=== PATIENT | female | born 1960 | race Caucasian/White ===

== ENCOUNTER 2021-02-25 14:40 | Outpatient (CLI) | payer OTHER ==
--- NOTE | 2021-03-05 13:24 | Mammography Report ---
BILATERAL DIGITAL SCREENING MAMMOGRAM 3D/2D: 02/25/2021 CLINICAL: Routine screening. Comparison is made to exams dated: 09/12/2019 mammogram, 08/29/2018 mammogram, and 08/18/2017 mammogr [facility]. There are scattered fibroglandular elements in both breasts. There is a biopsy clip in the right breast. No significant masses, calcifications, or other findings are seen in either breast. There has been no significant interval change. IMPRESSION: NEGATIVE There is no mammographic evidence of malignancy. A 1 year screening mammogram is recommended. This exam was interpreted at Station ID: [id number]. NOTE: For mammograms, a report in lay terms will be sent to the patient. Approximately 15% of breast malignancies will not be visualized mammographically. In the management of a palpable breast mass, a negative mammogram must not discourage biopsy of a clinically suspicious lesion. Electronically Signed By: Miguel Howell M.D. ar/penrad:03/04/2021 15:55:49 ACR BI-RADS Category 1: Negative 3341F PARENCHYMAL PATTERN: (A) - The breast(s) demonstrate(s) scattered fibroglandular densities. BI-RADS CATEGORY: (1) - 1 RECOMMENDATION: (ANNUAL) - Recommend routine annual screening mammography. [id number] 1 year screening LATERALITY: (B)
== END 2021-02-25 14:41 | disposition home or self-care (01) ==
LOC: DI 14:40
DX: Z12.31 Encounter for screening mammogram for malignant neoplasm of breast (principal)

== ENCOUNTER 2022-04-09 09:41 | Outpatient (CLI) | payer OTHER ==
--- NOTE | 2022-04-10 12:34 | Mammography Report ---
BILATERAL DIGITAL SCREENING MAMMOGRAM 3D/2D: 04/09/2022 CLINICAL: Routine screening. Comparison is made to exams dated: 02/25/2021 mammogram - [facility], 09/12/2019 ma mmogram, 08/29/2018 mammogram, 08/18/2017 mammogram, 07/20/2016 mammogram, and 07/05/2015 mammogram - [facility]. There are scattered fibroglandular elements in both breasts. There is a benign lymph node in the right breast. There also is a biopsy clip in the right breast. No significant masses, calcifications, or other findings are seen in either breast. There has been no significant interval change. IMPRESSION: BENIGN There is no mammographic evidence of malignancy. A 1 year screening mammogram is recommended. Based on the Tyrer Cuzick model (a risk assessment model) the patients lifetime risk is 8.1% and her 10 year risk is 3.1%. According to the ACR, ACS, and NCCN guidelines, an annual breast MRI exam tricia g with mammogram is recommended if the patients lifetime risk is 20% or greater. This exam was interpreted at Station ID: [id number]. NOTE: For mammograms, a report in lay terms will be sent to the patient. Approximately 15% of breast malignancies will not be visualized mammographically. In the management of a palpable breast mass, a negative mammogram must not discourage biopsy of a clinically suspicious lesion. Electronically Signed By: Phi Cho acr/penrad:04/09/2022 12:01:57 ACR BI-RADS Category 2: Benign Finding(s) 3342F PARENCHYMAL PATTERN: (A) - The breast(s) demonstrate(s) scattered fibroglandular densities. BI-RADS CATEGORY: (2) - 2 RECOMMENDATION: (ANNUAL) - Recommend routine annual screening mammography. [id number] 1 year screening LATERALITY: (B)
== END 2022-04-09 09:42 | disposition home or self-care (01) ==
LOC: DI.N 09:41
DX: Z12.31 Encounter for screening mammogram for malignant neoplasm of breast (principal)

== ENCOUNTER 2022-05-21 11:14 | Outpatient (CLI) | payer OTHER ==
[2022-05-21 12:01] VITALS: BP 154/80
--- NOTE | 2022-05-21 12:01 | SLEEP CARE CONSULTATION ---
Information from patient questionnaire entered by Bev Rosa. I have reviewed and concur with the information entered by Bev Rosa. This document represents the service I personally performed and the decisions made by , Suzanna Durant ARNP. History of Present Illness Service Date and Time: 05/21/2022 1114 Reason for Visit: Previously diagnosed sleep apnea, sleep apnea on CPAP therapy Chief Complaint: reports: Other (CHECK EQUIPMENT, PICK NEW MASK ) Date of Onset: SLEEP APNEA DIAGNOSED 2015 Usual bedtime: 10PM Time it takes to fall asleep: 10-15 MINUTES Snores at night: Yes Observed to quit breathing while asleep: Yes Sleeps alone due to snoring: No Number of times waking at night: 2-3 Reasons for waking at night: reports: Other (CPAP MACHINE/MASK BOTHERING ME (DRY MOUTH)) Toss, Turn, or Twitch while sleeping: Yes Recalls having dreams: Yes Feels refreshed in the morning: Yes (SOMETIMES) Morning headache: No Sleepy or fatigued during the day: Yes (SOMETIMES) Ever fallen asleep while driving: No Takes day naps: Yes (SOMETIMES) Dreams during day naps: No Prior sleep studies: Yes Year and Where: [facility] ([place], [place]) Additional HPI information: GEE BELL was previously diagnosed in to have unknown, AHI unknown, unknown sleep apnea-hypopnea syndrome and comes in today to establish care for CPAP therapy. - Parasomnia Symptoms Ever been unable to move upon waking from sleep: No Walks in sleep: No Talks in sleep: No Ever acted out dreams in sleep: No Ever felt weak in the knees when startled or emotional: No Bothered by creepy, crawly, restless sensations in legs: No Problems with memory or concentration: Yes (SOMETIMES) CPAP Compliance Data - Data Reviewed with Patient Average duration of nightly device use: 4.1 hrs Compliance rate %: 0.1 (19180 days >4 hours) Current pressure setting (cmH2O): 4-20 (avg 9.1) Average residual AHI: 0.8 Average large leak: 4 L/min Compliance data discussion: She has gotten supplies from [employer] in the past. She is using a nasal pillows mask. She has a ResMed Airsense 10. Subjective Patient concerns: reports: mask discomfort (soreness in nares from pillows), condensation in mask/hose (but then improved with adjustment of humidity). denies: aerophagia, air blowing in eyes, mask leak noise, nasal congestion, dry mouth, nose, throat, epistaxis Observed to snore while using device: No Current pressure setting perceived as: comfortable On therapy, patient: reports: sleeping better, awakening more refreshed, being more awake and alert during the day, more rested overall. denies: drowsiness while driving Initial [place] Sleepiness Scale score: 10 (05/19/22) Past Medical History Past Medical History: reports: Hypertension (Pulmonary hypertension), Diabetes Social History The patient's occupation is a RE. Patient is and lives in . Have you smoked in the past 12 months: No Alcohol use: Yes Alcohol amount and frequency: 3 DRINKS A WEEK (AVERAGE) Caffeine use: Yes Caffeine amount and frequency: 2 CUPS A DAY Family History Family history of sleep disordered breathing: Yes Family Hx Sleep Apnea: Father: Sleep apnea - Treated Allergies and Home Medications Drug allergies reviewed: Yes (PENICILLIN) Home medication list reviewed: Yes Allergy and home medication list: Medications: Metformin 500 mg daily Atorvastatin 20 mg daily Review of Systems Weight gain over past 5 years: 5 Cardiovascular: reports: other (MURMUR) Ear/Nose/Throat: reports: tonsillectomy Physical Exam Vital signs obtained and entered by: EDDIE SCHMIDT Blood Pressure: 154/80 (LEFT ARM ) Cuff size: regular Heart Rate: 68 O2 Saturation: 98 Height: 5 ft 3 in Weight: 223 lb Body Mass Index: 39.4 BMI Classification: Obese Neck circumference: 15.5 (INCHES ) Heart: regular rate and rhythm Lungs: clear bilaterally Impression and Plan 1. Obstructive Sleep Apnea-Hypopnea Syndrome, unknown, with poor treatment compliance and good apnea control. On CPAP therapy, the patient has better sleep quality and is more rested overall. Patient here to establish care and to get supplies for her CPAP. She states she used it consistently for about 3 years and then she has been inconsistent over the last 2. She recently has been having more issues with her hypertension. She decided to restart using her CPAP. She has noticed that she feels more rested since she started using it even for a few hours a night. She has been using a nasal pillows mask but is finding that her nose is getting really dry in the nasal pillows are irritating the inside of her nose. This is limiting her desire to continue using the mask. She would like to try a different style. I discussed different options and had Donnell our lead phlebotomy technologist come in and fit her with a nasal cushion mask by Moe [employer]oGraham. She liked the fit and will try this mask. I will have her come back in 1 to 2 months so that we can recheck compliance. She is eligible for a new machine but I would like to show her as compliant before we order the machine and new supplies. She voiced understanding and agreement with this plan of care. Patient's apnea severity and rationale for treatment to reduce apnea, improve sleep quality and reduce cardiovascular and cerebrovascular events was reviewed. I also reviewed the benefit of consistent device use of CPAP for pulmonary hypertension and diabetes. She also has a portable machine that she would like to be able to take on a vacation that she is planning in about a year. She states she is not sure it is working as it should. I will write a prescription to have it serviced and she is aware that she will have to pay for this. * Continue auto CPAP pressure at 4-20 cmH2O * Try Dreamwear nasal cushion mask, sample given * Service portable machine * Notify me if snoring with mask or feeling that the pressure is too much or too little * Call this office if any problems using CPAP * Return for follow up in 1-2 months, or sooner if concerns arise Mask provided: Yes Counseling Topics: Spare mask, Weight loss health impact Visit Type: In Office Time Spent with Patient (minutes): 37 Provider Statement: I spent 100% of the Face to Face Visit with the patient with greater than 50% spent counseling the patient and coordination of care.
== END 2022-05-21 11:15 | disposition home or self-care (01) ==
LOC: SC 11:14
PROVIDERS: ATTEND Nurse Practitioner Family
DX: G47.33 Obstructive sleep apnea (adult) (pediatric) (principal); E66.9 Obesity, unspecified; Z68.39 Body mass index [BMI] 39.0-39.9, adult
CPT/HCPCS: 99203; 99212

== ENCOUNTER 2022-11-18 10:46 | Outpatient (CLI) | payer OTHER ==
[2022-11-18 11:20] VITALS: BP 138/76
--- NOTE | 2022-11-18 11:20 | SLEEP CARE CONSULTATION ---
Information from patient questionnaire entered by Teagan Quintana. I have reviewed and concur with the information entered by Teagan Quintana. This document represents the service I personally performed and the decisions made by me, Suzanna Durant ARNP. History of Present Illness Service Date and Time: 11/18/2022 1046 Previous diagnosis: Moderate, Obstructive Sleep Apnea-Hypopnea Syndrome AHI: 15.5 (in 2016) Reason for follow up: other (2MONTH F/U) Equipment type: CPAP (RESMED Airsense 10) Equipment obtained from: [employer] (not getting supplies yet) Mask style: Nasal Mask brand: Respironics (Dreamwear) Backup mask available: No (will need to keep old mask when replaced) Last cushion change: 2 months Prior sleep studies: Yes HPI additional information: GEE BELL was diagnosed to have moderate, AHI 15.5, obstructive sleep apnea-hypopnea syndrome and returned today for CPAP therapy two month follow-up. CPAP Compliance Data - Data Reviewed with Patient Average duration of nightly device use: 6.1 hours Compliance rate %: 80 (25/30 days used) Current pressure setting (cmH2O): 4-20 (avg 9.5) Average residual AHI: 1.1 Subjective Patient concerns: denies: aerophagia, mask discomfort, air blowing in eyes, mask leak noise, condensation in mask/hose, nasal congestion, dry mouth, nose, throat, epistaxis Observed to snore while using device: No Current pressure setting perceived as: comfortable On therapy, patient: reports: sleeping better, awakening more refreshed, being more awake and alert during the day, more rested overall. denies: drowsiness while driving Initial [place] Sleepiness Scale score: 6 (11/18/22) Current [place] Sleepiness Scale score: 6 Allergies and Home Medications Known drug allergies: Yes (penicillins) Drug allergies reviewed: Yes Home medication list reviewed: Yes (no changes) Review of Systems Review of systems same as previous: Yes (no changes) Physical Exam Vital signs obtained and entered by: TEAGAN Bernal MA Blood Pressure: 138/76 (LEFT ARM) Cuff size: regular Heart Rate: 73 O2 Saturation: 98 Height: 5 ft 3 in Weight: 220 lb Body Mass Index: 38.9 BMI Classification: Obese Impression and Plan 1. Obstructive Sleep Apnea-Hypopnea Syndrome, moderate, with good treatment compliance and good apnea control. On CPAP therapy, the patient has better sleep quality and is more rested overall. Patient has a ResMed Airsense 10 that was received in 2016/2016. The patients CPAP is over 5 years old and of reasonable use. Thus, the CPAP will be updated. A DWO prescription will be made. Compliance guidelines for new device and follow up discussed. Patient's apnea severity and rationale for treatment to reduce apnea, improve sleep quality and reduce cardiovascular and cerebrovascular events was reviewed. I also reviewed the benefit of consistent device use of CPAP for hypertension and diabetes. 2. Obesity, unspecified. Currently patients BMI is 38.9. Obesity increases the risk of apnea, CPAP pressure requirements and overall health risks especially cardiovascular and diabetes. Thus patient is advised to lose weight. * Continue auto CPAP pressure at 4-20 cmH2O * Update machine * Update supplies * Notify me if snoring with mask or feeling that the pressure is too much or too little * Attempt to lose weight * Call this office if any problems using CPAP * Return for follow up one month after obtaining new device, or sooner if concerns arise Counseling Topics: Spare mask, Weight loss health impact Prescriptions: Auto CPAP, Device supplies Visit Type: In Office Time Spent with Patient (minutes): 22 Provider Statement: I spent 100% of the Face to Face Visit with the patient with greater than 50% spent counseling the patient and coordination of care.
== END 2022-11-18 10:47 | disposition home or self-care (01) ==
LOC: SC 10:46
PROVIDERS: ATTEND Nurse Practitioner Family
DX: G47.33 Obstructive sleep apnea (adult) (pediatric) (principal); E66.9 Obesity, unspecified; Z68.38 Body mass index [BMI] 38.0-38.9, adult
CPT/HCPCS: 99212; 99213

== ENCOUNTER 2023-02-03 09:54 | Outpatient (CLI) | payer OTHER ==
--- NOTE | 2023-02-03 10:22 | Sleep Patient Instructions ---
Sleep Center Visit Summary - Patient Visit Information Reason for Visit: Follow up for first compliance visit with new CPAP - Patient Instructions Additional Instructions: You were here for follow up of CPAP therapy. You will be continued on CPAP therapy with pressure at 4-20 cmH2O. You should follow up with sleep care in 12 months. You may contact us sooner for any questions or concerns. - Clinic Information Contact: [facility] [address] [place] [id number] [email or web address] T: [phone]
--- NOTE | 2023-02-03 10:27 | SLEEP CARE CONSULTATION ---
Information from patient questionnaire entered by Jayden Quintana. I have reviewed and concur with the information entered by Jayden Quintana. This document represents the service I personally performed and the decisions made by me, Suzanna Durant ARNP. History of Present Illness Service Date and Time: 02/03/2023 0954 Previous diagnosis: Moderate, Obstructive Sleep Apnea-Hypopnea Syndrome AHI: 15.5 (in 2016) Reason for follow up: first compliance after device update Equipment type: CPAP (RESMED Airsense 11, s/u 11/2022) Equipment obtained from: [employer] (getting supplies) Mask style: Nasal Backup mask available: Yes (old mask) Last cushion change: 2 months Prior sleep studies: Yes Year and Where: [facility] [place] additional information: GEE BELL was diagnosed to have moderate, AHI 15.5, obstructive sleep apnea- hypopnea syndrome and returned today for CPAP therapy first compliance after updating device follow-up. Sleep Study - Results Prior sleep studies: Yes Year and Where: [place], [place]) CPAP Compliance Data - Data Reviewed with Patient Average duration of nightly device use: 6 hours 56 minutes Compliance rate %: 80 ( days used with 4 days on her travel CPAP) Current pressure setting (cmH2O): 4-20 Average residual AHI: 0.8 Central apnea: 0.2 Obstructive apnea: 0.2 Average large leak: 0.4 L/min Compliance data discussion: She is using her old Resmed Airsense 10 for a travel CPAP. She has used 4 days just last week. This brings her compliance to 80%. Subjective Missed days of use due to: reports: travel (using travel CPAP) Patient concerns: reports: dry mouth, nose, throat (occasional). denies: aerophagia, mask discomfort, air blowing in eyes, mask leak noise, condensation in mask/hose, nasal congestion, epistaxis Observed to snore while using device: No Current pressure setting perceived as: comfortable On therapy, patient: reports: sleeping better, awakening more refreshed, being more awake and alert during the day, more rested overall. denies: drowsiness while driving Initial [place] Sleepiness Scale score: 6 (11/18/22) Current [place] Sleepiness Scale score: 7 (02/03/23) Allergies and Home Medications Known drug allergies: Yes (penicillins) Drug allergies reviewed: Yes Home medication list reviewed: Yes (no changes) Allergy and home medication list: Allergies Penicillins Allergy (Verified 02/02/23 14:58) Unknown Review of Systems Review of systems same as previous: Yes (no changes) Physical Exam Vital signs obtained and entered by: JAYDEN Bernal MA Blood Pressure: 122/72 (LEFT ARM) Cuff size: long Heart Rate: 68 O2 Saturation: 97 Height: 5 ft 3 in Weight: 226 lb 3.2 oz Body Mass Index: 40.0 BMI Classification: Morbidly Obese Impression and Plan 1. Obstructive Sleep Apnea-Hypopnea Syndrome, moderate, with good treatment compliance and good apnea control. On CPAP therapy, the patient has better sleep quality and is more rested overall. She really likes the new CPAP. Patient has significant improvement of their sleep apnea and is satisfied with current CPAP therapy. She denies any issues with mask. She is using her old CPAP as a travel machine. I have added the days used to her total to get her compliance total. She is compliant at 80% with travel CPAP use. Patient's apnea severity and rationale for treatment to reduce apnea, improve sleep quality and reduce cardiovascular and cerebrovascular events was reviewed. I also reviewed the benefit of consistent device use of CPAP for hypertension and diabetes. 2. Obesity, unspecified. Currently patients BMI is 40. Obesity increases the risk of apnea, CPAP pressure requirements and overall health risks especially cardiovascular and diabetes. Thus patient is advised to lose weight. * Continue auto CPAP pressure at 4-20 cmH2O * Notify me if snoring with mask or feeling that the pressure is too much or too little * Attempt to lose weight * Call this office if any problems using CPAP * Return for follow up in 1 year, or sooner if concerns arise Counseling Topics: Spare mask, Weight loss health impact Visit Type: In Office Time Spent with Patient (minutes): 23 Provider Statement: I spent 100% of the Face to Face Visit with the patient with greater than 50% spent counseling the patient and coordination of care.
[2023-02-03 10:30] VITALS: BP 122/72
== END 2023-02-03 09:55 | disposition home or self-care (01) ==
LOC: SC 09:54
PROVIDERS: ATTEND Nurse Practitioner Family
DX: G47.33 Obstructive sleep apnea (adult) (pediatric) (principal); E66.01 Morbid (severe) obesity due to excess calories; Z68.41 Body mass index [BMI] 40.0-44.9, adult
CPT/HCPCS: 99212; 99213